=== PATIENT | female | born 1965 | race Hispanic/Latino ===

== ENCOUNTER → 2020-05-12 | Outpatient (CLI) | payer MEDICARE ==
--- NOTE | 2020-05-12 11:30 | Diagnostic Imaging Report ---
Thyroid and parotid Ultrasound Clinical Diagnosis: Parotid mass/thyroid nodule in a 54-year-old female. Comparison: None Technique: Multiple images were submitted for interpretation. Multiple longitudinal and transaxial images were performed with a high frequency linear transducer. Report: Right lobe: The right lobe measures 4.9 x 2.3 x 2.4 cm. There are no calcifications. There is one nodule in the lateral mid part of the thyroid lobe. It measures 3.0 cc x 2.3 AP x 2.2 transverse cm. The nodule is mostly hypoechoic to isoechoic, has smooth or ill-defined borders, has no calcifications. TI-RADS: Score: 7, level: 5, recommendations: Highly suspicious. FNA recommended. Left lobe: The left lobe measures 3.5 x 1.4 x 1.7 cm. There are no nodules, cysts or masses. There is one focus of calcification measuring 0.3 cm inferiorly/medially. The isthmus measures 3 mm. There is a nodule measuring 1.3 cc x 0.5 AP x 0.9 transverse cm. It is solid, mostly isoechoic, smooth margins, no calcifications. Ti-RADS: Score: 6, level: 4, recommendation: Moderately suspicious. Follow-up at 123 and 5 years. Homogenous texture. Examination of the left parotid area shows several lymph nodes all benign looking with fatty centers. Impression: Multiple thyroid nodules with recommendations as described above. The right lobe nodule needs FNA. Benign-looking left parotid lymph nodes. Signed by: Iván Rodriguez MD on 05/12/2020 11:27 AM
== END ==
LOC: US 09:59
PROVIDERS: ATTEND Otolaryngology
DX: K11.8 Other diseases of salivary glands (principal)
CPT/HCPCS: 76536

== ENCOUNTER → 2020-08-04 | Outpatient (CLI) | payer MEDICARE | LOC: US 11:00 | PROVIDERS: ATTEND Otolaryngology | DX: E04.1 Nontoxic single thyroid nodule (principal); K11.8 Other diseases of salivary glands | CPT/HCPCS: 10005; 88112; 88172; 88173; 88305 ==